=== PATIENT | female | born 1995 | race Caucasian/White ===

== ENCOUNTER 2019-08-15 23:56 | Emergency (ER) | payer MEDICAID ==
[~2019-08-15] VITALS: Ht 165.1 cm; Wt 54.0 kg
--- NOTE | 2019-08-16 00:11 | NUR ---
DR FUNG AT FOR PT HISTORY AND ASSESSMENT. PT INSTRUCTED TO CHANGE INTO GOWN AT THIS TIME.
[2019-08-16] MEDS ORDERED: DEXAMETHASONE 4 MG/ML, 5ML ONE (00:25)
[2019-08-16] MEDS ORDERED: KETOROLAC 30 MG/1 ML ONE (00:25)
[2019-08-16] MEDS ORDERED: KETOROLAC 30 MG/1 ML IVPush ONE (00:30)
[2019-08-16] MEDS ORDERED: SODIUM CHLORIDE 0.9% 1,000ML IVBOLUS ONE (00:30)
[2019-08-16] MEDS ORDERED: DEXAMETHASONE 4 MG/ML, 1ML IVPush ONE (00:30)
[2019-08-16] MEDS ORDERED: SODIUM CHLORIDE FLUSH 10ML SYR IVF ONE (00:30)
--- NOTE | 2019-08-16 00:31 | NUR ---
PT MEDICATED PER AUG. PT RESTING COMFORTABLY IN [facility] AT THIS TIME WITH CALL LIGHT WITHIN REACH.
[2019-08-16 00:40] LABS: BASOPHILS # (AUTO) 0.06 x10^3/uL (0-0.1); BASOPHILS % (AUTO) 1 % (0-1); EOSINOPHILS # (AUTO) 0.28 x10^3/uL (0-0.4); EOSINOPHILS % (AUTO) 4 % (1-7); LYMPHOCYTES % (AUTO) 34 % (22-44); MD NO; MEAN CORPUSCULAR HGB CONC 33.1 g/dL (32.4-35.8); MEAN CORPUSCULAR VOLUME 93.6 fL (80-100); MEAN PLATELET VOLUME 7.9 fL (7.4-10.4); MONOCYTES # (AUTO) 0.71 x10^3/uL (0.2-0.8); MONOCYTES % (AUTO) 9 % (2-9); NEUTROPHILS # (AUTO) 4.29 x10^3/uL (1.8-6.8); NEUTROPHILS % (AUTO) 53 % (42-75); PLATELET COUNT 360 x10^3/uL (130-400); RED BLOOD COUNT 4.81 x10^6/uL (3.82-5.3); RED CELL DISTRIBUTION WIDTH 13.9 % (9.6-15.2)
[2019-08-16 00:50] LABS: ALBUMIN 3.7 g/dL (3.4-5.0); ANION GAP 5 mmol/L (5-15); CALCIUM 9.5 mg/dL (8.5-10.1); CHLORIDE 110 mmol/L (98-107); CREATININE 1.09 mg/dL (0.55-1.02)
[2019-08-16 01:42] VITALS: BP 103/73
--- NOTE | 2019-08-16 01:43 | NUR ---
BREAK RN: DR FUNG IN ROOM UPDATING PATIENT. PATIENT READY FOR DC.
== END 2019-08-16 01:49 | disposition home or self-care (01) ==
LOC: ED 08-16 00:59
DX: E86.0 Dehydration (principal); R55 Syncope and collapse; J02.8 Acute pharyngitis due to other specified organisms; B97.89 Other viral agents as the cause of diseases classified elsewhere
CPT/HCPCS: 36415; 80048; 82040; 84703; 85025; 87081; 87147; 87880; 93005; 96361; 96374; 96375; 99284; J1100; J1885; J7030